=== PATIENT | female | born 1990 | race Caucasian/White ===

== ENCOUNTER → 2017-06-19 10:04 | Outpatient (CLI) | payer OTHER, SELFPAY ==
--- NOTE | 2017-06-19 10:30 | US_ITS ---
STUDY: SECOND AND THIRD TRIMESTER OBSTETRICAL ULTRASOUND REASON FOR EXAM: Female, 26 years old. Evaluate anatomy LMP: 01/26/2017 TECHNIQUE: Transabdominal PRIOR ULTRASOUND: None. FINDINGS: There is a single intrauterine fetus. Variable presentation There is demonstrated cardiac activity with a heart rate of 122 bpm. There is a normal amniotic fluid volume. The largest amniotic fluid pocket measures 6.7 cm. The placenta is posterior in location and is not low lying. There are Grade 0 placental changes. The cervix measures 4.1 cm in length. The bilateral adnexal regions are normal. BIOMETRY: BPD: 4.8 cm: 20 weeks, 3 days HC: 18.3 cm: 20 weeks, 5 days AC: 15 cm: 20 weeks, 2 days FL: 3.5 cm: 19 weeks, 4 days age by current US: 20 weeks, 5 days. ASHWINI by current US: 11/01/2017. Estimated weight: 362 grams, +/- 53 grams, 44 %. Age by LMP: 20 weeks, 4 days. ASHWINI by LMP: 11/02/2017. ANATOMY: Gender: Female Cranium: Normal lateral ventricles. Normal choroid plexus. Normal cerebellum. Normal cisterna magna. Normal face, nose and lips. Chest: Normal 4-chamber heart. Abdomen/Pelvis: Normal diaphragm. Normal stomach. Normal abdominal wall. Normal cord insertion. Normal 3 vessel cord. Normal kidneys. Normal bladder. Spine: Normal cervical spine. Normal thoracic spine. Normal lumbar spine. Normal sacrum. Extremities: Normal bilateral upper extremities. Normal bilateral lower extremities. US/OB Anatomy Scan IMPRESSION: Single live intrauterine at current gestational age of 20 weeks 5 days with estimated date of delivery 11/01/2017. anatomy is within normal limits. Electronically Signed: Michele Mckeon DO at 12:22 EST Tel , Service support ,
== END ==
PROVIDERS: Visit Provider Obstetrics & Gynecology
DX: Z34.92 Encounter for supervision of normal pregnancy, unspecified, second trimester (principal); Z3A.20 20 weeks gestation of pregnancy
CPT/HCPCS: 76805

== ENCOUNTER → 2017-08-08 13:07 | Outpatient (CLI) | payer OTHER, SELFPAY ==
[2017-08-08 15:55] LABS: Absolute Lymphocyte Count 2.06 X10^3/ul (0.83-4.51); Basophil# 0.01 X10^3/uL; Basophil% 0.1 % (0-1); Eosinophil# 0.09 X10^3/uL; Eosinophils% 0.8 % (0-5); Hematocrit 39.3 % (37-47); Lymphocyte # 2.06 X10^3/ul (4.0); Lymphocyte % 17.3 % (19-41); Mean Corp Hgb Conc 33.1 g/gl (32-36); Mean Corpuscular Hgb 31.8 pg (27.0-32.0); Mean Corpuscular Volume 96.1 fL (81-99); Mean Platelet Vol. 9.9 fl (6.2-12.0); Monocyte% 5.9 % (0-10); Neutrophil # 8.99 X10^3/uL (2.7-7.7); Neutrophil % 75.6 % (47-70); Platelet Count 166 K/mm3 (150-450); RBC Distribution Width CV 13.6 % (11.6-14.6); RBC Distribution Width SD 47.2 fl (35.1-43.9); Red Blood Count 4.09 M/mm3 (4.2-5.4); White Blood Count 11.9 K/mm3 (4.4-11.0)
[2017-08-08 15:57] LABS: POSITIVE COUNT NO; POSITIVE DIFFERENTIAL NO; POSITIVE MORPHOLOGY NO
[2017-08-08 16:09] LABS: Glucose Challenge Gest 1H 50g 136 mg/dL (70-140)
== END ==
PROVIDERS: Visit Provider Obstetrics & Gynecology
DX: O34.219 Maternal care for unspecified type scar from previous cesarean delivery (principal); Z3A.00 Weeks of gestation of pregnancy not specified
CPT/HCPCS: 82950; 85025

== ENCOUNTER → 2017-08-13 06:56 | Outpatient (CLI) | payer OTHER, SELFPAY ==
[2017-08-13 07:45] LABS: Glucose GTT-Gestation. Fasting 88 mg/dL (<105)
[2017-08-13 10:08] LABS: Glucose GTT-Gestational 1 Hr 161 mg/dL (<190)
[2017-08-13 10:12] LABS: Glucose GTT-Gestational 2 Hr 167 mg/dL (<165)
[2017-08-13 11:01] LABS: Glucose GTT-Gestational 3 Hr 141 L (<145)
== END ==
PROVIDERS: Nurse Practitioner Women's Health; Visit Provider Obstetrics & Gynecology
DX: O99.810 Abnormal glucose complicating pregnancy (principal); Z3A.00 Weeks of gestation of pregnancy not specified
CPT/HCPCS: 36415; 82951; 82952

== ENCOUNTER → 2017-09-04 15:47 | Outpatient (CLI) | payer OTHER, SELFPAY ==
[2017-09-04 16:29] LABS: ROM Internal Control Test YES-OK TO RESULT pt. (Internal QC); ROM Patient Test Negative (Negative)
== END ==
PROVIDERS: Visit Provider Nurse Practitioner Women's Health
DX: N89.8 Other specified noninflammatory disorders of vagina (principal)
CPT/HCPCS: 84112

== ENCOUNTER → 2017-09-27 13:23 | Outpatient (CLI) | payer OTHER, SELFPAY ==
--- NOTE | 2017-09-27 13:24 | US_ITS ---
STUDY: SECOND AND THIRD TRIMESTER OBSTETRICAL ULTRASOUND - LIMITED REASON FOR EXAM: Female, 26 years old. Routine survey. LMP: January 26, 2017. PRIOR ULTRASOUND: Comparison is made with prior examination dated June 19, 2017. TECHNIQUE: Transabdominal ultrasound evaluation was performed. FINDINGS: There is a single intrauterine fetus. The fetus is in a cephalic presentation. There is demonstrated cardiac activity with a heart rate of 127 bpm. There is a normal amniotic fluid volume. The largest amniotic fluid pocket measures 7.2 cm x 3.5 cm. The amniotic fluid index (ZUNILDA) is 10.3 cm. The placenta is fundal in location. There are Grade 1 placental changes. The cervix measures 3.3 cm in length. BIOMETRY: BPD: 8.27 cm: 33 weeks, 2 days HC: 30.13 cm: 33 weeks, 4 days AC: 31.26 cm: 35 weeks, 2 days FL: 7.17 cm: 36 weeks, 6 days Age by LMP: 34 weeks, 6 days. ASHWINI by LMP: November 02, 2017. age by prior US: 35 weeks, 0 days. ASHWINI by prior US: November 01, 2017. age by current US: 34 weeks, 6 days. ASHWINI by current US: November 02, 2017. Estimated weight: 2618 grams, +/- 382 grams, 57 percentile. Gender: Female US/OB Limited With Biometrics IMPRESSION: Single live intrauterine gestation with a mean gestational age of 35 weeks and 0 days. The measurements obtained today fall within the normal expected range. Electronically Signed: Gt Jalloh MD at 15:28 EDT Tel [phone], Service support ,
== END ==
PROVIDERS: Visit Provider Nurse Practitioner Women's Health
DX: O24.419 Gestational diabetes mellitus in pregnancy, unspecified control (principal); Z3A.00 Weeks of gestation of pregnancy not specified
CPT/HCPCS: 76816

== ENCOUNTER → 2017-10-10 17:23 | Outpatient (CLI) | payer OTHER, SELFPAY ==
[2017-10-10 18:26] LABS: Group B Strep DNA By PCR Negative (Negative); Internal Control PASS; Probe Check PASS; Specimen Processing Control PASS
== END ==
PROVIDERS: Visit Provider Nurse Practitioner Women's Health
DX: Z34.93 Encounter for supervision of normal pregnancy, unspecified, third trimester (principal); Z3A.36 36 weeks gestation of pregnancy
CPT/HCPCS: 87081; 87653

== ENCOUNTER 2017-10-30 13:55 | Inpatient (IN) | payer OTHER, SELFPAY ==
[2017-10-30] MEDS: Lactated Ringers 1,000 ML 50 ML IV ×3 (14:50→20:08)
[2017-10-30 15:00] VITALS: BMI 33.3
[2017-10-30 15:18] LABS: Hemoglobin 14.5 g/dl (12.0-15.0); Mean Platelet Vol. 10.8 fl (6.2-12.0); Platelet Count 178 K/mm3 (150-450); RBC Distribution Width CV 14.2 % (11.6-14.6); RBC Distribution Width SD 48.3 fl (35.1-43.9); Red Blood Count 4.68 M/mm3 (4.2-5.4); White Blood Count 12.2 K/mm3 (4.4-11.0)
[2017-10-30 15:19] LABS: Scan Indicated on CBC? Y/N NO
[2017-10-30 17:21] LABS: Bedside Glucose 70 mg/dL (70-110)
[2017-10-30 19:11] LABS: Bedside Glucose 66 mg/dL (70-110)
[2017-10-30 19:40] LABS: Bedside Glucose 81 mg/dL (70-110)
--- NOTE | 2017-10-30 21:33 | PCM.HP.OB ---
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 History Date of Admission: 10/30/17 Final ASHWINI: 11/02/17 Gestational age: 39 Weeks and 4 Days History of this : This is a 26 year-old, G2, P1, at 39 weeks gestational age. patient presented IAL 5 cm dilated. well controlled diabetes. desiring TOLAC, cosnent form signed Surgical History: Surgical History (Last Reviewed 10/18/17 @ 14:45 by Dalia Irizarry) History of delivery, currently (Acute) O34.219 consider TOLAC- 57% likelihood of success, patient counseled that ideally she should have 60% chance or more of success, patient given literature on TOLAC risks and benefits, patient wants to proceed with TOLAC. Allergies No Known Allergies Allergy (Verified 10/18/17 14:45) Home Medications: Home Medications vitamin,calcium,rjgmtkdc-ecvw-jtkls acid tablet 1 tab PO QDAY 04/30/17 acetone (urine) test strips See Dose Instructions .ROUTE .MEDSUPPLY #25 ea 08/13/17 blood sugar diagnostic strips See Dose Instructions .ROUTE .MEDSUPPLY #50 ea 08/13/17 blood-glucose meter kit See Dose Instructions .ROUTE .MEDSUPPLY #1 ea 08/13/17 Smoking Status: Never smoker Number of Fetus(es): 1 Heart Tracins moderate variability reactive no decels cat I TOCO Analysis: q 2-5 History Past Pregnancies: Past Pregnancies previous term csection Delivery Date Name GA/Weeks Outcome Route Weight Infant Gender Labor Length Anesthesia Delivery Location Provider FOB Labs: Mom[facility] Labs & Results 10/30/17 10/30/17 10/30/17 14:55 14:55 17:10 WBC 12.2 H RBC 4.68 Hgb 14.5 Hct 44.0 MCV 94.0 MCH 31.0 MCHC 33.0 RDW 14.2 RDW Differential 48.3 H Plt Count 178 MPV 10.8 POC Glucose 70 Blood Type A POSITIVE Antibody Screen NEGATIVE 10/30/17 10/30/17 18:17 19:22 WBC RBC Hgb Hct MCV MCH MCHC RDW RDW Differential Plt Count MPV POC Glucose 66 L 81 Blood Type Antibody Screen Course Did the patient receive Yes care? Labs Blood Type: A RH: POSITIVE RPR/VDRL/Syphilis Nonreactive Rubella status Immune HbSAg Negative Date Done: 05/22/17 Chlamydia Negative Gonorrhea Negative HIV/AIDS Non-Reactive Group B Strep: Negative Current Obstetrical History Gestational Diabetes Yes Incompetent Cervix No Infertility No IUGR No Macrosomia No Hypertension/Pre-eclampsia No Placenta Previa/Abruption No PTL/PROM No Uterine anomaly No Oligohydramnios No Polyhydramnios No Multiple gestation No Past Medical History Asthma No Diabetes No Hypertension No Heart disease No Mitral valve prolapse No Neurologic/Seizure disorder/ No Migraines Kidney disease No Liver disease No Varicosities No Clotting disorders/Hx of DVT No Thyroid Dysfunction No Other medical diseases No Psychiatric disorders No Major trauma No Abnormal PAP smear No Sleep apnea No Mammogram in the last 2 years No Social History Marital Status: Alleged father Maury Bond Hx Smoking No Smoking Status Never smoker Expected Infant Delivery Method: Review of Systems Constitutional: Denies: Fever, Malaise Eyes: Denies: Blurred vision, Vision Change HEENT: Denies: Head Aches, Visual Changes Cardiovascular: Denies: Chest Pain, Palpitations Respiratory: Denies: Cough, Shortness of Breath, Wheezing Gastrointestinal: Denies: Abdominal Pain, Diarrhea, Nausea, Vomiting Genitourinary: Denies: Dysuria, Hematuria Musculoskeletal: Denies: Joint Pain, Muscle pain Skin: Denies: Lesions, Rash Neurological: Denies: Blurred vision, Focal weakness, Headaches Psychiatric: Denies: Anxiety, Depression Endocrine: Denies: Heat/ Cold Intolerance Hematologic/ Lymphatic: Denies: Easy Bruising, Easy Bleeding Physical Exam General: Alert, Cooperative, No apparent distress HEENT: Atraumatic, Normocephalic. Negative for: Thyromegaly, Lymphadenopathy Cardiovascular: Regular rate Lungs: Normal air movement Abdomen: Soft, Non Tender, Gravid Neurological: Deep Tendon Reflexes 2+/4 and Symmetrical, Neuro grossly intact. Negative for: Clonus SAP MANAGER: Normal external genitalia. Negative for: Vulvar lesions Estimated gestational size: Appropriate for gestational size Presentation: Cephalic Assessment/Plan All Active Problems (Last Reviewed 10/18/17 @ 14:45 by Dalia Irizarry) Active labor at term (Acute) Supervision of high risk in third trimester (Acute) Gestational diabetes (Acute) History of delivery, currently (Acute) This is a 26 year-old, G2, P1, at 39 weeks gestational age. desired TOLAC and is IAL arom meconium fluid, reassuring tracing epidural placed gdma1- bs q 1 hour
--- NOTE | 2017-10-30 21:37 | HP.PCM_ITS ---
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 History Date of Admission: 10/30/17 Final ASHWINI: 11/02/17 Gestational age: 39 Weeks and 4 Days History of this : This is a 26 year-old, G2, P1, at 39 weeks gestational age. patient presented IAL 5 cm dilated. well controlled diabetes. desiring TOLAC, cosnent form signed Surgical History: Surgical History (Last Reviewed 10/18/17 @ 14:45 by Dalia Irizarry) History of delivery, currently (Acute) O34.219 consider TOLAC- 57% likelihood of success, patient counseled that ideally she should have 60% chance or more of success, patient given literature on TOLAC risks and benefits, patient wants to proceed with TOLAC. Allergies No Known Allergies Allergy (Verified 10/18/17 14:45) Home Medications: Home Medications vitamin,calcium,wwxunrms-gkwt-htwhq acid tablet 1 tab PO QDAY 04/30/17 acetone (urine) test strips See Dose Instructions .ROUTE .MEDSUPPLY #25 ea 08/13 blood sugar diagnostic strips See Dose Instructions .ROUTE .MEDSUPPLY #50 ea blood-glucose meter kit See Dose Instructions .ROUTE .MEDSUPPLY #1 ea 08/13/17 Smoking Status: Never smoker Number of Fetus(es): 1 Heart Tracins moderate variability reactive no decels cat I TOCO Analysis: q 2-5 History Past Pregnancies: Past Pregnancies previous term csection Delivery Date Name GA/Weeks Outcome Route Weight Gender Labor Length Anesthesia Delivery Location Provider FOB Labs: Mom[facility] Labs & Results 10/30/17 10/30/17 10/30/17 14:55 14:55 17:10 WBC 12.2 H RBC 4.68 Hgb 14.5 Hct 44.0 MCV 94.0 MCH 31.0 MCHC 33.0 RDW 14.2 RDW Differential 48.3 H Plt Count 178 MPV 10.8 POC Glucose 70 Blood Type A POSITIVE Antibody Screen NEGATIVE 10/30/17 10/30/17 18:17 19:22 WBC RBC Hgb Hct MCV MCH MCHC RDW RDW Differential Plt Count MPV POC Glucose 66 L 81 Blood Type Antibody Screen Course Did the patient receive Yes care? Labs Blood Type: A RH: POSITIVE RPR/VDRL/Syphilis Nonreactive Rubella status Immune HbSAg Negative Date Done: 05/22/17 Chlamydia Negative Gonorrhea Negative HIV/AIDS Non-Reactive Group B Strep: Negative Current Obstetrical History Gestational Diabetes Yes Incompetent Cervix No Infertility No IUGR No Macrosomia No Hypertension/Pre-eclampsia No Placenta Previa/Abruption No PTL/PROM No Uterine anomaly No Oligohydramnios No Polyhydramnios No Multiple gestation No Past Medical History Asthma No Diabetes No Hypertension No Heart disease No Mitral valve prolapse No Neurologic/Seizure disorder/ No Migraines Kidney disease No Liver disease No Varicosities No Clotting disorders/Hx of DVT No Thyroid Dysfunction No Other medical diseases No Psychiatric disorders No Major trauma No Abnormal PAP smear No Sleep apnea No Mammogram in the last 2 years No Social History Marital Status: Alleged father Maury Bond Hx Smoking No Smoking Status Never smoker Expected Infant Delivery Method: Review of Systems Constitutional: Denies: Fever, Malaise Eyes: Denies: Blurred vision, Vision Change HEENT: Denies: Head Aches, Visual Changes Cardiovascular: Denies: Chest Pain, Palpitations Respiratory: Denies: Cough, Shortness of Breath, Wheezing Gastrointestinal: Denies: Abdominal Pain, Diarrhea, Nausea, Vomiting Genitourinary: Denies: Dysuria, Hematuria Musculoskeletal: Denies: Joint Pain, Muscle pain Skin: Denies: Lesions, Rash Neurological: Denies: Blurred vision, Focal weakness, Headaches Psychiatric: Denies: Anxiety, Depression Endocrine: Denies: Heat/ Cold Intolerance Hematologic/ Lymphatic: Denies: Easy Bruising, Easy Bleeding Physical Exam General: Alert, Cooperative, No apparent distress HEENT: Atraumatic, Normocephalic. Negative for: Thyromegaly, Lymphadenopathy Cardiovascular: Regular rate Lungs: Normal air movement Abdomen: Soft, Non Tender, Gravid Neurological: Deep Tendon Reflexes 2+/4 and Symmetrical, Neuro grossly intact. Negative for: Clonus BUTTER LIQUEFIER: Normal external genitalia. Negative for: Vulvar lesions Estimated gestational size: Appropriate for gestational size Presentation: Cephalic Assessment/Plan All Active Problems (Last Reviewed 10/18/17 @ 14:45 by Dalia Irizarry) Active labor at term (Acute) Supervision of high risk in third trimester (Acute) Gestational diabetes (Acute) History of delivery, currently (Acute) This is a 26 year-old, G2, P1, at 39 weeks gestational age. desired TOLAC and is IAL arom meconium fluid, reassuring tracing epidural placed gdma1- bs q 1 hour
[2017-10-30] MEDS: Oxytocin 30 units/NS 500 ml 30 UNITS/500 ML IV.SOLN 334 UNITS IV (21:59)
[2017-10-30 22:05] LABS: Bedside Glucose 81 mg/dL (70-110)
[2017-10-30 22:05] LABS: Bedside Glucose 75 mg/dL (70-110)
--- NOTE | 2017-10-30 22:19 | PCM.OB.VAG ---
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 Vaginal Delivery Maternal Presentation: Active Labor 26-year-old at 39 weeks 4 days presents in active labor 5 cm dilation Amniotic Membrane Rupture Type: Artificial Amniotic Fluid Description: Moderate meconium Final ASHWINI: 11/02/17 Gestational age: 39 Weeks and 4 Days Date of Procedure: 10/30/17 Pre-Operative Diagnosis: In active labor, recurrent variable decelerations category 2 tracing Post-Operative Diagnosis: Same Surgery/ Procedure Performed: Vacuum Assisted Vaginal Delivery Type of Anesthesia: Epidural Description of Procedure: Patient began pushing and delivered the head in the TOM presentation. She developed recurrent severe variables down into the 60s with several contractions and moderate variability category 2 tracing, head was at the +3 station. The decision for a vacuum-assisted delivery was made and the Kiwi vacuum was applied and the +3 station and pulls were made with 2 contractions with 1 pop off the head was delivered atraumatically . The anterior and posterior shoulders delivered without complication followed by the rest of the infant and the was placed on the maternal abdomen. Cord was clamped and cut and gentle traction was applied to the cord and the placenta delivered spontaneously immediately following it was noted to be intact with three-vessel cord. The perineum and vagina were inspected and noted to have a second-degree laceration that was repaired in the usual fashion with 3-0 Vicryl repeat. EBL was 300 cc. Patient and tolerated delivery well. Presentation: TOM Placental Delivery Description: Spontaneous Placenta Disposition: [facility] Cord Vessel Description: 3 Vessels Cord Gases drawn per routine: ABG, VBG Cord Entanglement: None Estimated Blood Loss: 300 A gender: Female Episiotomy Description: None Laceration: Perineal Extension/lac, 2nd degree Medications given after delivery: IV Pitocin Complications: None
[2017-10-30] MEDS: Oxytocin 30 units/NS 500 ml 30 UNITS/500 ML IV.SOLN 167 UNITS IV (22:29)
[2017-10-30] MEDS: 0.9% Saline Lock 10 ML Syringe IV (23:44)
--- NOTE | 2017-10-31 00:43 | NURSING ---
epidural catheter removed- blue tip intact
[2017-10-31] MEDS: Naproxen 250 MG Tablet PO ×2 (02:21→17:31)
[2017-10-31 04:00] VITALS: BP 111/62; PULSE 74; RESP 16; TEMP 36.7; O2SAT 98
[2017-10-31 09:00] VITALS: BP 110/57; PULSE 72; RESP 16; TEMP 35.8; O2SAT 98
[2017-10-31 09:00] LABS: Bedside Glucose 77 mg/dL (70-110)
--- NOTE | 2017-10-31 10:45 | PCM.PN.OB ---
Patient Problems: Active and Suspected Problems (Last Reviewed 10/18/17 @ 14:45 by Dalia Irizarry) Active labor at term (Acute) Subjective: doing well no complaints - Physical Exam General: Alert, Oriented x3 Vital Signs Temp Pulse Resp BP Pulse Ox 96.4 F L 72 16 110/57 L 98 10/31/17 09:00 10/31/17 09:00 10/31/17 09:00 10/31/17 09:00 10/31/17 09:00 Oxygen Delivery Method Room Air Weight: 188 lb 4 oz Body Mass Index (BMI) 33.3 Intake and Output for Last 24 Hours 10/29/17 10/30/17 10/31/17 23:59 23:59 23:59 Intake Total 180 / 180 Output Total 100 / 100 1400 / 1400 Balance 80 / 80 -1400 / -1400 Laboratory Tests Past 24 Hrs 10/30/17 10/30/17 14:55 14:55 WBC 12.2 H RBC 4.68 Hgb 14.5 Hct 44.0 MCV 94.0 MCH 31.0 MCHC 33.0 RDW 14.2 RDW Differential 48.3 H Plt Count 178 MPV 10.8 Blood Type A POSITIVE Antibody Screen NEGATIVE POC Glucose 10/31/17 10/30/17 10/30/17 08:50 21:16 20:13 POC Glucose 77 81 75 10/30/17 10/30/17 10/30/17 19:22 18:17 17:10 POC Glucose 81 66 L 70 Medical Necessity - Tobacco Use Smoking Status: Never smoker Assessment/Plan All Active Problems (Last Reviewed 10/18/17 @ 14:45 by Dalia Irizarry) Active labor at term (Acute) Supervision of high risk in third trimester (Acute) Gestational diabetes (Acute) History of delivery, currently (Acute) s/p doing well routine care
[2017-10-31 12:50] VITALS: BP 106/48; PULSE 73; TEMP 37.2; O2SAT 96
[2017-10-31 15:00] VITALS: BP 105/57; PULSE 77; RESP 16; TEMP 37.2; O2SAT 96
[2017-10-31 19:48] VITALS: BP 105/47; PULSE 85; RESP 16; TEMP 37.1; O2SAT 96
[2017-11-01 02:00] VITALS: BP 114/75; PULSE 71; RESP 18; TEMP 36.3; O2SAT 98
[2017-11-01 07:39] VITALS: BP 101/42; PULSE 74; RESP 18; TEMP 36.6; O2SAT 97
--- NOTE | 2017-11-01 08:37 | PCM.PN.OB ---
Patient Problems: Active and Suspected Problems (Last Reviewed 10/18/17 @ 14:45 by Dalia Irizarry) Active labor at term (Acute) Subjective: NO SOB, CP, nausea. Doing well. - Physical Exam General: Alert, Oriented x3 Abdomen: Soft, Non Tender, - - FF below U Vital Signs Temp Pulse Resp BP Pulse Ox 97.9 F 74 18 101/42 L 97 11/01/17 07:39 11/01/17 07:39 11/01/17 07:39 11/01/17 07:39 11/01/17 07:39 Oxygen Delivery Method Room Air Weight: 188 lb 4 oz Body Mass Index (BMI) 33.3 Intake and Output for Last 24 Hours 10/30/17 10/31/17 11/01/17 23:59 23:59 23:59 Intake Total 180 / 180 Output Total 100 / 100 1400 / 1400 Balance 80 / 80 -1400 / -1400 POC Glucose 10/31/17 08:50 POC Glucose 77 Medical Necessity - Tobacco Use Smoking Status: Never smoker Assessment/Plan All Active Problems (Last Reviewed 10/18/17 @ 14:45 by Dalia Irizarry) Active labor at term (Acute) Supervision of high risk in third trimester (Acute) Gestational diabetes (Acute) History of delivery, currently (Acute) PPVAD #2 Routine care. OTC med for pain. . Home today.
--- NOTE | 2017-11-01 08:41 | PCM.DCVAG ---
Additional Instructions: If you experience any of the following, contact your healthcare provider. Bleeding that soaks a pad every hour for 2 hours Fever 100.4 or higher Unrelieved incision or abdominal pain Swelling, redness, discharge or bleeding from your incision or episiotomy site Your incision begins to separate Problems urinating (including inability to urinate or burning while urinating). Visual changes Severe headache Flu-like symptoms Pain or redness in one of both of your breasts Pain, warmth, tenderness or swelling in your legs, especially the calf area Frequent nausea and vomiting Symptoms of depression or anxiety If you experience any of the following, call 911 or go to the nearest Emergency Room. Chest pain Problems breathing Seizure activity Partial or complete paralysis of a body part, slurred speech, weakness or drooping of the face, or a sudden inability to walk or hold your balance Allergies/Adverse Reactions: Allergies No Known Allergies Allergy (Verified 10/18/17 14:45) Medications to take at Discharge vitamin,calcium,iqzclzfz-qgyq-nbgwd acid tablet 1 tab PO QDAY 04/30/17 acetone (urine) test strips See Dose Instructions .ROUTE .MEDSUPPLY #25 ea 08/13/17 blood sugar diagnostic strips See Dose Instructions .ROUTE .MEDSUPPLY #50 ea 08/13/17 blood-glucose meter kit See Dose Instructions .ROUTE .MEDSUPPLY #1 ea 08/13/17 Primary Care Physician: Care Physician,No Primary [Primary Care Provider] -
--- NOTE | 2017-11-01 08:42 | DCINST_ITS ---
Additional Instructions: If you experience any of the following, contact your healthcare provider. * Bleeding that soaks a pad every hour for 2 hours * Fever 100.4 or higher * Unrelieved incision or abdominal pain * Swelling, redness, discharge or bleeding from your incision or episiotomy site * Your incision begins to separate * Problems urinating (including inability to urinate or burning while urinating) . * Visual changes * Severe headache * Flu-like symptoms * Pain or redness in one of both of your breasts * Pain, warmth, tenderness or swelling in your legs, especially the calf area * Frequent nausea and vomiting * Symptoms of depression or anxiety If you experience any of the following, call 911 or go to the nearest Emergency Room. * Chest pain * Problems breathing * Seizure activity * Partial or complete paralysis of a body part, slurred speech, weakness or drooping of the face, or a sudden inability to walk or hold your balance Allergies/Adverse Reactions: Allergies No Known Allergies Allergy (Verified 10/18/17 14:45) Medications to take at Discharge vitamin,calcium,gehciauj-lior-atyse acid tablet 1 tab PO QDAY 04/30/17 acetone (urine) test strips See Dose Instructions .ROUTE .MEDSUPPLY #25 ea 08/13 blood sugar diagnostic strips See Dose Instructions .ROUTE .MEDSUPPLY #50 blood-glucose meter kit See Dose Instructions .ROUTE .MEDSUPPLY #1 08/13/17 Primary Care Physician: Care Physician,No Primary [Primary Care Provider] -
[2017-11-01 12:53] VITALS: BP 115/65; PULSE 79; RESP 18; TEMP 37.5; O2SAT 97
== END 2017-11-01 13:10 | disposition home or self-care (01) | DRG 775 ==
PROVIDERS: Admitting Provider Obstetrics & Gynecology; Visit Provider Obstetrics & Gynecology
DX: O76 Abnormality in fetal heart rate and rhythm complicating labor and delivery (principal); O24.429 Gestational diabetes mellitus in childbirth, unspecified control; O77.0 Labor and delivery complicated by meconium in amniotic fluid; O70.1 Second degree perineal laceration during delivery; Z98.891 History of uterine scar from previous surgery; Z3A.39 39 weeks gestation of pregnancy; Z37.0 Single live birth
CPT/HCPCS: 59025; 59050; 82962; 85027; 86850; 86900; 99218; J7120; A4216; G0378

== ENCOUNTER → 2017-12-12 19:18 | Outpatient (CLI) | payer OTHER, SELFPAY ==
[2017-12-19 08:18] LABS: HPV Reflexed? NOT INDICATED
== END ==
PROVIDERS: Visit Provider Obstetrics & Gynecology
DX: Z12.4 Encounter for screening for malignant neoplasm of cervix (principal)
CPT/HCPCS: 88175; G0145

== ENCOUNTER → 2018-11-13 13:46 | Outpatient (CLI) | payer OTHER, SELFPAY ==
[2018-11-13 12:20] VITALS: BMI 29.0
== END ==
PROVIDERS: Referring Provider Obstetrics & Gynecology; Visit Provider Obstetrics & Gynecology
DX: R39.15 Urgency of urination (principal)
CPT/HCPCS: 87086; 87088

== ENCOUNTER → 2019-11-27 10:28 | Outpatient (CLI) | payer OTHER, SELFPAY ==
[2019-11-27 10:15] VITALS: BMI 29.0
[2019-11-27 11:04] LABS: Hemoglobin A1c 5.1 % (3.8-5.6)
[2019-12-05 05:45] LABS: HPV APTIMA, High Risk Negative (Negative)
== END ==
PROVIDERS: PCP Internal Medicine; Referring Provider Nurse Practitioner Women's Health; Visit Provider Nurse Practitioner Women's Health
DX: Z12.4 Encounter for screening for malignant neoplasm of cervix (principal); Z86.32 Personal history of gestational diabetes
CPT/HCPCS: 36415; 83036; 87624; 88175; G0145

== ENCOUNTER → 2020-01-05 | Outpatient (CLI) | payer OTHER, SELFPAY ==
[2020-01-05 14:22] VITALS: BMI 29.0
[2020-01-05 18:31] LABS: Amphetamine Urine VISTA NEGATIVE (<1000 ng/mL); Barbiturate Urine VISTA NEGATIVE (< 200 ng/mL); Benzodiazepine Urine VISTA NEGATIVE (< 200 ng/mL); Cocaine Urine VISTA NEGATIVE (< 300 ng/mL); Ecstacy Urine VISTA NEGATIVE (< 500 ng/mL); Methadone Urine VISTA NEGATIVE (< 300 ng/mL); PCP Urine VISTA NEGATIVE (< 25 ng/mL); THC Urine VISTA NEGATIVE (< 50 ng/mL); Vista UDS pH Range 6
[2020-01-08 03:06] LABS: Chlamydia By Nucleic Acid AMP Negative (Negative)
[2020-01-08 11:31] LABS: Gonococcus By Nucleic Acid AMP Negative (Negative)
== END | disposition home or self-care (01) ==
PROVIDERS: PCP Internal Medicine; Referring Provider Obstetrics & Gynecology; Visit Provider Obstetrics & Gynecology
DX: Z34.90 Encounter for supervision of normal pregnancy, unspecified, unspecified trimester (principal)
CPT/HCPCS: 80307; 87086; 87088; 87491; 87591

== ENCOUNTER → 2020-02-02 11:33 | Outpatient (CLI) | payer OTHER, SELFPAY ==
[2020-02-02 10:56] VITALS: BMI 29.0
[2020-02-02 11:53] LABS: Absolute Lymphocyte Count 1.93 X10^3/uL (0.83-4.51); Absolute Neutrophil Count 5.7 X10^3/uL (2.0-7.7); Basophil# 0.01 X10^3/uL; Basophil% 0.1 % (0-1); Eosinophil# 0.04 X10^3/uL; Eosinophils% 0.5 % (0-5); Hematocrit 39.9 % (37-47); Hemoglobin 13.4 g/dL (12.0-15.0); Lymphocyte # 1.93 X10^3/ul (4.0); Lymphocyte % 23.1 % (19-41); Mean Corp Hgb Conc 33.6 g/dL (32-36); Mean Corpuscular Hgb 31.5 pg (27.0-32.0); Mean Corpuscular Volume 93.9 fL (81-99); Mean Platelet Vol. 9.5 fl (6.2-12.0); Monocyte# 0.54 X10^3/uL; Monocyte% 6.5 % (0-10); NRBC Flagged by Analyzer 0 % (0-5); Neutrophil # 5.72 X10^3/uL (2.7-7.7); Neutrophil % 68.5 % (47-70); Platelet Count 223 K/mm3 (150-450); RBC Distribution Width CV 12.7 % (11.6-14.6); RBC Distribution Width SD 43.6 fl (35.1-43.9); Red Blood Count 4.25 M/mm3 (4.2-5.4); White Blood Count 8.4 K/mm3 (4.4-11.0)
[2020-02-02 13:14] LABS: HIV - WCH Non-Reactive (Nonreactive); Hepatitis B Surface Antigen Non-Reactive (Nonreactive); Hepatitis C Antibody Non-Reactive (Nonreactive); Rubella IgG 217.8 IU/mL
[2020-02-05 04:30] LABS: Rapid Plasmin Reagin (RPR) NONREACTIVE (NONREACTIVE)
== END ==
PROVIDERS: PCP Internal Medicine; Referring Provider Obstetrics & Gynecology; Visit Provider Obstetrics & Gynecology
DX: Z34.90 Encounter for supervision of normal pregnancy, unspecified, unspecified trimester (principal)
CPT/HCPCS: 36415; 85025; 86592; 86703; 86762; 86803; 86850; 86900; 86901; 87340

== ENCOUNTER → 2020-03-15 13:29 | Outpatient (CLI) | payer OTHER, SELFPAY ==
[2020-02-02 10:56] VITALS: BMI 29.0
[2020-03-02 10:14] VITALS: BMI 32.2
--- NOTE | 2020-03-15 13:29 | US_ITS ---
STUDY: SECOND AND THIRD TRIMESTER OBSTETRICAL ULTRASOUND REASON FOR EXAM: Female, 29 years old ANATOMY LMP: 11/02/2019. TECHNIQUE: Transabdominal and Transvaginal TECHNICAL QUALITY: Adequate. PRIOR ULTRASOUND: None. FINDINGS: There is a single intrauterine fetus. The fetus is in a cephalic presentation. There is demonstrated cardiac activity with a heart rate of 158 bpm. There is a normal amniotic fluid volume. The largest amniotic fluid pocket measures 4.7 cm x 3.2 cm. The amniotic fluid index (ZUNILDA) is within normal limits. The placenta is posterior and low lying but not previa in location. The tip of the placenta is 9 mm from the cervical os. There are Grade 0 placental changes. The cervix measures 3.2 cm in length. The bilateral adnexal regions are normal. BIOMETRY: BPD: 4.2 cm: 18 weeks, 5 days HC: 16.1 cm: 18 weeks, 6 days AC: 14.1 cm: 19 weeks, 3 days FL: 2.9 cm: 18 weeks, 5 days CI: 73% FL/BPD: 68% FL/HC: FL/AC: 20% HC/AC: 1.14 age by current US: 18 weeks, 6 days. ASHWINI by current US: 08/10/2020. Estimated weight: 276 grams, +/- 41 grams, 44 %. Age by LMP: 19 weeks, 0 days. ASHWINI by LMP: 08/09/2020. ANATOMY: Gender: Female Cranium: Normal lateral ventricles. Normal choroid plexus. Normal cerebellum. Normal cisterna magna. Normal face, nose and lips. Chest: Normal 4-chamber heart. Abdomen/Pelvis: Normal diaphragm. Normal stomach. Normal abdominal wall. Normal cord insertion. Normal 3 vessel cord. Normal kidneys. Normal bladder. Spine: Normal cervical spine. Normal thoracic spine. Normal lumbar spine. Normal sacrum. Extremities: Normal bilateral upper extremities. Normal bilateral lower extremities. US/OB Anatomy Scan IMPRESSION: Single live intrauterine gestation with mean gestational age of 18 weeks and 6 days. Electronically Signed: Gt Jalloh, at 15:53 EDT , Service support ,
== END ==
PROVIDERS: PCP Internal Medicine; Referring Provider Obstetrics & Gynecology; Visit Provider Obstetrics & Gynecology
DX: Z36.9 Encounter for antenatal screening, unspecified (principal)
CPT/HCPCS: 76805; 76817

== ENCOUNTER → 2020-05-24 09:08 | Outpatient (CLI) | payer OTHER, SELFPAY ==
[2020-04-02 16:05] VITALS: BMI 32.8
[2020-04-30 15:40] VITALS: BMI 33.6
--- NOTE | 2020-05-24 09:11 | US_ITS ---
STUDY: SECOND AND THIRD TRIMESTER OBSTETRICAL ULTRASOUND - LIMITED REASON FOR EXAM: Female, 29 years old PLACENTA LOCATION LMP: 11/02/2019. PRIOR ULTRASOUND: Comparison is made with prior examination 03/15/2020. TECHNIQUE: Transabdominal and Transvaginal TECHNICAL QUALITY: Adequate. FINDINGS: There is a single intrauterine fetus. The fetus is in a cephalic presentation. There is demonstrated cardiac activity with a heart rate of 160 bpm. There is a normal amniotic fluid volume. The largest amniotic fluid pocket measures 5.6 cm. The amniotic fluid index (ZUNILDA) is 12.6 cm. The placenta is posterior in location and is borderline low lying. The tip of the placenta lies at 2.1 cm from the cervix. There are Grade 1 placental changes. The cervix measures 3.3 cm in length. BIOMETRY: Age by LMP: 29 weeks, 0 days. ASHWINI by LMP: 08/09/2020. age by prior US: 28 weeks, 6 days. ASHWINI by prior US: 08/10/2020. US/OB Limited (No Biometrics) IMPRESSION: Posterior placenta. The distal tip of the placenta lies at 2.1 cm from the cervix. Electronically Signed: Gt Jalloh, at 12:43 EST , Service support ,
== END ==
PROVIDERS: PCP Internal Medicine; Referring Provider Obstetrics & Gynecology; Visit Provider Obstetrics & Gynecology
DX: Z34.93 Encounter for supervision of normal pregnancy, unspecified, third trimester (principal); Z3A.29 29 weeks gestation of pregnancy
CPT/HCPCS: 76815; 76817

== ENCOUNTER → 2020-06-24 13:03 | Outpatient (CLI) | payer OTHER, SELFPAY ==
[2020-04-30 15:40] VITALS: BMI 33.6
[2020-06-04 09:13] VITALS: BMI 34.5
--- NOTE | 2020-06-24 13:05 | US_ITS ---
STUDY: SECOND AND THIRD TRIMESTER OBSTETRICAL ULTRASOUND - LIMITED REASON FOR EXAM: Female, 29 years old PLACENTAL LOCATION LMP: 11/02/2019. PRIOR ULTRASOUND: Comparison is made with prior examination dated 05/24/2020. TECHNIQUE: Transabdominal and Transvaginal TECHNICAL QUALITY: Adequate. FINDINGS: There is a single intrauterine fetus. The fetus is in a cephalic presentation. There is demonstrated cardiac activity with a heart rate of 135 bpm. There is a normal amniotic fluid volume. The largest amniotic fluid pocket measures 5.5 cm. The amniotic fluid index (ZUNILDA) is 13.7 cm. The placenta is posterior and low lying but not previa in location. The tip of the placenta is between 1.5 cm and 1.7 cm from the os. There are Grade 1 placental changes. The cervix measures 3.2 cm in length. BIOMETRY: BPD: 8.2 cm: 33 weeks, 2 days HC: 29.7 cm: 32 weeks, 6 days AC: 29.4 cm: 33 weeks, 2 days FL: 6.4 cm: 33 weeks, 1 days Age by LMP: 33 weeks, 3 days. ASHWINI by LMP: 08/09/2020. age by prior US: 33 weeks, 4 days. ASHWINI by prior US: 08/10/2020. age by current US: 32 weeks, 6 days. ASHWINI by current US: 08/13/2020. Estimated weight: 2183 grams, +/- 327 grams, 41 percentile. The umbilical cord lies along the posterior neck of the fetus. US/OB Limited With Biometrics IMPRESSION: Single live intrauterine gestation with a mean gestational age of 33 weeks and 4 days. The measurements obtained today fall within normal expected range. There is a low-lying posterior placenta. The tip of the placenta is between 1.5 cm and 1.7 cm from the cervical os. Electronically Signed: Gt Jalloh MD at 14:53 EST , Service support ,
== END ==
PROVIDERS: PCP Internal Medicine; Referring Provider Nurse Practitioner Women's Health; Visit Provider Nurse Practitioner Women's Health
DX: O44.43 Low lying placenta NOS or without hemorrhage, third trimester (principal); Z3A.33 33 weeks gestation of pregnancy
CPT/HCPCS: 76816; 76817

== ENCOUNTER → 2020-07-13 | Outpatient (CLI) | payer OTHER, SELFPAY ==
[2020-07-13 10:33] VITALS: BMI 35.0
== END | disposition home or self-care (01) ==
PROVIDERS: Referring Provider Obstetrics & Gynecology; Visit Provider Obstetrics & Gynecology
DX: Z34.90 Encounter for supervision of normal pregnancy, unspecified, unspecified trimester (principal)
CPT/HCPCS: 87081

== ENCOUNTER → 2020-07-20 12:52 | Outpatient (CLI) | payer OTHER, SELFPAY ==
[2020-06-24 13:53] VITALS: BMI 35.1
[2020-07-13 10:33] VITALS: BMI 35.0
--- NOTE | 2020-07-20 12:54 | US_ITS ---
STUDY: SECOND AND THIRD TRIMESTER OBSTETRICAL ULTRASOUND - LIMITED REASON FOR EXAM: Female, 29 years old placenta placement LMP: 11/03/2019. PRIOR ULTRASOUND: Comparison is made with prior study dated 06/24/2020. TECHNIQUE: Transabdominal and Transvaginal TECHNICAL QUALITY: Adequate. FINDINGS: There is a single intrauterine fetus. The fetus is in a cephalic presentation. There is demonstrated cardiac activity with a heart rate of 157 bpm. There is a normal amniotic fluid volume. The largest amniotic fluid pocket measures 4.1 cm x 3.4 cm. The amniotic fluid index (ZUNILDA) is 10.55 cm. The placenta is posterior and low lying but not previa in location. The tip of the placenta is between 1.6 and 2.1 cm from the cervical os. There are Grade 1 placental changes. The cervix measures 3.6 cm in length. The umbilical cord is seen posterior to the neck. BIOMETRY: BPD: 9 cm: 36 weeks, 3 days HC: 32.41 cm: 36 weeks, 4 days AC: 32.75 cm: 36 weeks, 4 days FL: 7.28 cm: 37 weeks, 1 days Age by LMP: 37 weeks, 1 days. ASHWINI by LMP: 08/09/2020. age by prior US: 36 weeks, 4 days. ASHWINI by prior US: 08/13/2020. age by current US: 36 weeks, 3 days. ASHWINI by current US: 08/14/2020. Estimated weight: 3067 grams, +/- 46 grams, 50.9 percentile. IMPRESSION: Single live intrauterine gestation with a mean gestational age of 36 weeks and 4 days. The measurements obtained today fall within the normal expected range. Low-lying placenta. Electronically Signed: Gt Jalloh MD at 14:39 EST , Service support , STUDY: FIRST TRIMESTER OBSTETRICAL ULTRASOUND REASON FOR EXAM: Female, 29 years old placenta placement LMP: 11/03/2019 TECHNIQUE: Transvaginal TECHNICAL QUALITY: Adequate. PRIOR ULTRASOUND: None. FINDINGS: Posterior low-lying placenta. The tip of the placenta measures 1.6 to 2.1 cm from the cervical os. US/OB Limited With Biometrics IMPRESSION: Low-lying placenta previa. Electronically Signed: Gt Jalloh MD at 14:38 EST , Service support ,
== END ==
PROVIDERS: PCP Internal Medicine; Referring Provider Nurse Practitioner Women's Health; Visit Provider Nurse Practitioner Women's Health
DX: O44.43 Low lying placenta NOS or without hemorrhage, third trimester (principal); Z3A.36 36 weeks gestation of pregnancy
CPT/HCPCS: 76816; 76817

== ENCOUNTER 2020-08-02 11:40 | Inpatient (IN) | payer OTHER, SELFPAY ==
[2020-08-02] VITALS (28 sets, daily range): BP systolic 102–142; BP diastolic 51–76; PULSE 70–109; RESP 16; TEMP 36.4–36.9; O2SAT 97–100; BMI 35.2; BMI 34.4
--- NOTE | 2020-08-02 12:01 | HP.PCM_ITS ---
- Problem List (1) Active labor at term Status: Acute (2) 37 weeks gestation of Status: Acute Comment: electronic covid test ordered 07/23/20 (scheduled for 08/06/20 at 1340) (3) History of delivery Status: Acute Comment: x 1, plan this . (4) History of gestational diabetes Status: Acute Comment: declines 1 hr GCT, nl 1 week of home testing (5) Low-lying placenta Status: Acute Comment: almost 2 cm posterior away from cervix, will proceed with trial of labor (6) Other general counseling and advice for contraceptive management Status: Acute Comment: Wants BS if c section (7) Status: Acute Qualifiers: Comment: NIPT, carrier, and ntd declined. nl anatomy. patient declined GCT, planning home testing. (8) Supervision of normal Status: Acute Qualifiers: Comment: PRR ASHWINI 08/09/20 girl Germaine Seals Maury History and Physical Date of Admission: 08/02/20 Intake Vital Signs 08/02/20 Height 5 ft 3 in 08/02/20 Weight: 199 lb 08/02/20 BMI 35.2 Intake Visit Reasons: ?loF Chief Complaint: est ob loF? [employer] Required: No Is patient in pain?: No Allergies No Known Allergies Allergy (Verified 08/02/20 11:18) Medications vitamin#30 30 mg iron-10 mg iron-folic acid 1 mg-omg3 capsule cap PO 01/05/20 [History Confirmed 08/02/20] Last Menstral Period: 01/21/17 Zika: Zika virus screening: Negative : No PFSH PFSH Social History (Updated 08/02/20 @ 11:[address] 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 Date Name GA/Weeks Outcome Route Bth Weight Infant Gen Labor Lgth Anesthesia Del Locatn Provider FOB 12/05/13 Darby 39 live - full term 7 lb s 13 oz Female spinal [place] Dr. Roya Mendiola 10/30/17 Germaine 39 live - full term 7 lbs Female 8 hours epidural [facility] SACHI Maury Delivery Date: 12/05/13 No notes to display Delivery Date: 10/30/17 Variable Decels Minerva,Neda HPI ?loF: Details: DANY SALEH is a 29 year old who presents for routine OB visit. OB Visit ASHWINI Calculator Estimated Delivery Date Method Current WG Current Estimate 08/09/20 LMP (Certain) 39w 0d Other Estimates 08/09/20 Ultrasound #1 39w 0d Expected Delivery Route/Plan , preivous x 1 by 41 Labor Preferences- CB/BF classes: no labor support person: Maury labor intervention preferences: no pain management options preferred: epidural if needed cut cord/dad catch: no : yes PP control planned: BS if CS discussed possible routes of delivery and associated risks: [] special requests: [] Specific Issue/Plans flu vaccine: declines tdap vaccine: declines rhogam: na LARC form signed: yes movement and labor precautions reviewed. Problem list reviewed and updated with the most current plan of care details and appropriate orders placed. Relevant counseling for the gestational age provided. Continue routine care and follow up unless otherwise noted in visit notes/problem list details Initial Weight: 180 lb Date EGA Weight BP Urine Prot Glucose FHR FuHt Pres Dilation Effaced St Visit Note 01/05/20 9w 0d 182 lb (+2 lb) 110/72 165 SM- CRL - SM- CRL - 2cm cons with LMP 02/02/20 13w 0d 182 lb (+2 lb) 102/84 Negative Negative 150 SM- no vb cramping 03/02/20 17w 1d 182 lb (+2 lb) 110/72 Negative Negative 146 MH-No VB, LOF. Checking home glucose and WNL. 04/02/20 21w 4d 185 lb 6 oz (+5 lb 6 oz) 122/64 Negative Negative 145 SM- no vb cramping reviewed US 04/30/20 25w 4d 190 lb (+10 lb) 120/74 Negative Negative 145 25 SM- no vb lof good fm no regular ctx 06/04/20 30w 4d 195 lb (+15 lb) 110/74 Negative Negative 140 31 SM- no vb lof good fm no regular ctx 06/24/20 33w 3d 198 lb 2 oz (+18 lb 2 oz) 120/80 Negative Negative 148 33 MH-No vB, LOF, Good FM. US done earlier today. Larc 07/13/20 36w 1d 198 lb (+18 lb) 118/74 Negative Negative 140 36 Cephalic 1 SM- no vb lof good fm nor egular ctx 07/20/20 37w 1d 193 lb 6 oz (+13 lb 6 oz) 124/68 Negative Negative 145 37 Cephalic SM- no vb lof good fm no reuglar ctx had repeat us today 07/29/20 38w 3d 198 lb (+18 lb) 102/70 Negative Negative 145 38 Cephalic 3 40 -2 SM- no vb lof good fm no regular ctx SM- no vb lof good fm no regular ctx cervix still thick and posterior but more dilated. discussed risks of placental location, but reasonable for trial of labor. 08/02/20 39w 0d 199 lb (+19 lb) Cephalic 5 70 -1 GP - Presents for LOF. On exam, evidence of clear fluid in the vault. Cx 5cm with no palpable bag of water. Sent to labor and delivery for active labor. ACOG First Trimester First Trimester: Desire for , Alcohol, Tobacco Cessation, Illicit/Recreational Drug/Substance Use, Intimate Partner Violence, Barriers to care, Unstable Housing, Communication Barriers, Environmental/Work Hazards, Ant icipated Course of Care, Toxoplasmosis Precations, Use of Any medications, Sexual activity, Exercise, Dental Care, Sauna/Hot tub use, Seat Belt use, Childbirth classes/Hospital facilities, , Travel, Indications for US and Screening for Aneuploidy Second Trimester Second Trimester: Signs and Symptoms of Labor, Selecting a care provider, Reproductive Life Planning, Care Planning, Depression/Anxiety and Intimate Partner Violence; discussed Tobacco Cessation Third Trimester Third Trimester: Pain Management Plans, Trial of Labor after Counseling, Labor support person(s), Immediate Larc, Movement Monitoring, Signs and Symptoms of Preeclampsia and Labor Signs; discussed Depression Diagnostics Diagnostics Diagnostics Blood Type A POSITIVE 02/02/20 Antibody Screen NEGATIVE 02/02/20 HIV 1&2 Antibody Non-Reactive (Nonreactive) 02/02/20 Rubella IgG Antibody 217.8 IU/mL 02/02/20 Hgb 13.4 g/dL (12.0-15.0) 02/02/20 Hct 39.9 % (37-47) 02/02/20 RPR NONREACTIVE (NONREACTIVE) 02/02/20 Details: HIV: Urine Culture: Sequential Screen: NIPT Screen: ROS Const Reports system reviewed and no additional complaints, except as docu Eyes Reports system reviewed and no additional complaints, except as docu ENT Reports system reviewed and no additional complaints, except as docu Card Reports system reviewed and no additional complaints, except as docu Resp Reports system reviewed and no additional complaints, except as docu GI Reports system reviewed and no additional complaints, except as docu Reports system reviewed and no additional complaints, except as docu, Denies abnormal vaginal bleeding, Denies painful urination, Denies pelvic pain, Denies vaginal discharge, Denies vaginal odor, Denies vaginal itching Musc Reports system reviewed and no additional complaints, except as docu Skin/Breast Reports system reviewed and no additional complaints, except as docu Neuro Yes system reviewed and no additional complaints, except as docu Psych Reports system reviewed and no additional complaints, except as docu Endo Reports system reviewed and no additional complaints, except as docu Exam Const General: cooperative, healthy appearing, comfortable, no acute distress, well developed, well groomed Nutritional Appearance: average body habitus, well nourished Orientation: alert, awake, oriented x3 HENMT Head: normal to inspection, normocephalic, atraumatic Eyes Pupils: PERRL, accommodation normal Resp Effort & Inspection: normal respiratory effort, able to speak in complete sentences, symmetric chest movement Cardio Rate: regular rate GI Palpation: soft, no guarding, no masses, nontender Skin General: no rashes or lesions noted, elasticity normal, turgor normal Neuro General: alert, awake, oriented x3 Cranial Nerves: CN's II-XI intact bilaterally, sense of smell intact, PERRL, accommodation normal, EOM intact bilaterally Speech: speech normal Gait: normal gait Psych Appearance: grossly normal, well kempt Mental Status: mental status grossly normal Mood: congruent mood Affect: normal affect Speech and Movement: speech and movement normal Attitude: cooperative Thought Process: normal Thought Content: normal Judgment: judgment good Assessment & Plan Problems 1. 37 weeks gestation of Z3A.37 electronic covid test ordered 07/23/20 (scheduled for 08/06/20 at 1340) 2. Other general counseling and advice for contraceptive management Z30.09 Wants BS if c section 3. Low-lying placenta O44.40 almost 2 cm posterior away from cervix, will proceed with trial of labor 4. History of delivery Z98.891 x 1, plan this . 5. 39 weeks gestation of Z3A.39 NIPT, carrier, and ntd declined. nl anatomy. patient declined GCT, planning home testing. 6. Encounter for supervision of other normal in third trimester Z34.83 PRR ASHWINI 08/09/20 girl Germaine Seals Maury 7. History of gestational diabetes Z86.32 declines 1 hr GCT, nl 1 week of home testing Plan Patient presents IAL, plan expectant management for , pitocin if needed. Pain management: plan natural. GBS negative. Management of any complications: none I have reviewed the [facility] and made any clinically relevant updates. UPDATE- I have seen the patient and performed any clinically relevant updates to the history and physical exam. Tiff Olguin MD
[2020-08-02] MEDS: Lactated Ringers 1,000 ML 200 ML IV (12:10)
[2020-08-02 12:21] LABS: Absolute Lymphocyte Count 2.63 X10^3/uL (0.83-4.51); Absolute Neutrophil Count 9.1 X10^3/uL (2.0-7.7); Basophil# 0.03 X10^3/uL; Basophil% 0.2 % (0-1); Eosinophil# 0.03 X10^3/uL; Eosinophils% 0.2 % (0-5); Hematocrit 41.9 % (37-47); Hemoglobin 13.8 g/dL (12.0-15.0); Lymphocyte # 2.63 X10^3/ul (4.0); Lymphocyte % 20.4 % (19-41); Mean Corp Hgb Conc 32.9 g/dL (32-36); Mean Corpuscular Hgb 31.9 pg (27.0-32.0); Mean Platelet Vol. 11.4 fl (6.2-12.0); Monocyte# 1.02 X10^3/uL; Monocyte% 7.9 % (0-10); NRBC Flagged by Analyzer 0 % (0-5); Neutrophil # 9.14 X10^3/uL (2.7-7.7); Neutrophil % 70.8 % (47-70); Platelet Count 177 K/mm3 (150-450); RBC Distribution Width CV 13.6 % (11.6-14.6); Red Blood Count 4.32 M/mm3 (4.2-5.4); White Blood Count 12.9 K/mm3 (4.4-11.0)
[2020-08-02] MEDS: Lactated Ringers 500 ML 999 ML IV (13:56)
[2020-08-02] MEDS: fentaNYL-bupivacaine (epidural) 100 ML BAG EPIDURAL (14:15)
[2020-08-02] MEDS: Oxytocin 30 units/NS 500 ml 30 UNITS/500 ML IV.SOLN 334 UNITS IV (16:00)
--- NOTE | 2020-08-02 17:08 | OP.PCM_ITS ---
Problem List (1) Vaginal after () Status: Acute Vaginal Delivery Maternal Presentation: Active Labor ial srom clear fluid 39 weeks Method of Induction: Cytotec Amniotic Membrane Rupture Type: Spontaneous Amniotic Fluid Description: Clear Final ASHWINI: 08/09/20 Gestational age: 39 Weeks and 0 Days Date of Procedure: 08/02/20 Pre-Operative Diagnosis: ial tolac Post-Operative Diagnosis: Surgery/ Procedure Performed: - - Type of Anesthesia: Epidural Description of Procedure: Patient began pushing and delivered the head in the KIMI presentation. The head was delivered atraumatically a loose nuchal cord x1 was identified and the infant delivered through. The anterior and posterior shoulders delivered without complication followed by the rest of the and the was placed on the maternal abdomen. Delayed cord clamping was employed for approximately 60 seconds. Cord was clamped and cut and gentle traction was applied to the cord and the placenta delivered spontaneously immediately following it was noted to be intact with three-vessel cord. The perineum and vagina were inspected and noted to have no laceration. EBL was 100 cc. Patient and tolerated delivery well. Presentation: KIMI Placental Delivery Description: Spontaneous Placenta Disposition: [facility] Cord Entanglement: Around neck x 1, loose Estimated Blood Loss: 100 A gender: Female Episiotomy Description: None Laceration: None Medications given after delivery: IV Pitocin Complications: None Multi Select Codes - Urinary/Genital Urinary/Genital CPT Codes: 41967 delivery [facility]
--- NOTE | 2020-08-02 17:10 | DCINST_ITS ---
<Stephanie Garcia - Last Filed: 08/02/20 17:10> Discharge Diet: No Restrictions Discharge Activity: Return to Normal Activity, May not drive while taking narcotic pain medications., May Shower May resume sexual activity in: 4-6 weeks Call your doctor if your incision/area has: Continuous Slow Oozing, Sudden Increased Bleeding, Increased Pain/ Swelling, Increased Redness, Foul Smelling Discharge Additional Instructions: If you experience any of the following, contact your healthcare provider. * Bleeding that soaks a pad every hour for 2 hours * Fever 100.4 or higher * Unrelieved incision or abdominal pain * Swelling, redness, discharge or bleeding from your incision or episiotomy site * Your incision begins to separate * Problems urinating (including inability to urinate or burning while urinating). * Visual changes * Severe headache * Flu-like symptoms * Pain or redness in one of both of your breasts * Pain, warmth, tenderness or swelling in your legs, especially the calf area * Frequent nausea and vomiting * Symptoms of depression or anxiety If you experience any of the following, call 911 or go to the nearest Emergency Room. * Chest pain * Problems breathing * Seizure activity * Partial or complete paralysis of a body part, slurred speech, weakness or drooping of the face, or a sudden inability to walk or hold your balance Allergies/Adverse Reactions: Allergies No Known Allergies Allergy (Verified 08/02/20 11:57) Medications to take at Discharge vitamin#30 30 mg iron-10 mg iron-folic acid 1 mg-omg3 capsule cap PO 01/05/20 Naproxen [Naprosyn] 250 - 500 mg PO Q8H PRN PRN #30 tab 08/02/20 The following prescriptions were given: Naproxen [Naprosyn] 250 - 500 mg PO Q8H PRN PRN #30 tab PRN Reason: MILD PAIN Transmission Status: Received by [facility] Please Follow Up With: Stephanie Garcia MD - [phone] When: Call to make an appointment with your doctor in 6 weeks. If you had elevated Blood pressure or 4th degree laceration you will need to be seen in 2 weeks. Primary Care Physician: Care Physician,No Primary [Primary Care Provider] - Test Results: Test results from this visit will be discussed in further detail at your follow- up appointment, if applicable. <Delmis Kang BEEF SELECTOR - Last Filed: 08/03/20 07:43> Additional Instructions: If you experience any of the following, contact your healthcare provider. * Bleeding that soaks a pad every hour for 2 hours * Fever 100.4 or higher * Unrelieved incision or abdominal pain * Swelling, redness, discharge or bleeding from your incision or episiotomy site * Your incision begins to separate * Problems urinating (including inability to urinate or burning while urinating). * Visual changes * Severe headache * Flu-like symptoms * Pain or redness in one of both of your breasts * Pain, warmth, tenderness or swelling in your legs, especially the calf area * Frequent nausea and vomiting * Symptoms of depression or anxiety If you experience any of the following, call 911 or go to the nearest Emergency Room. * Chest pain * Problems breathing * Seizure activity * Partial or complete paralysis of a body part, slurred speech, weakness or drooping of the face, or a sudden inability to walk or hold your balance Test Results: Test results from this visit will be discussed in further detail at your follow- up appointment, if applicable.
--- NOTE | 2020-08-02 17:10 | PCM.DCVAG ---
<Stephanie Garcia - Last Filed: 08/02/20 17:10> Discharge Diet: No Restrictions Discharge Activity: Return to Normal Activity, May not drive while taking narcotic pain medications., May Shower May resume sexual activity in: 4-6 weeks Call your doctor if your incision/area has: Continuous Slow Oozing, Sudden Increased Bleeding, Increased Pain/ Swelling, Increased Redness, Foul Smelling Discharge Additional Instructions: If you experience any of the following, contact your healthcare provider. Bleeding that soaks a pad every hour for 2 hours Fever 100.4 or higher Unrelieved incision or abdominal pain Swelling, redness, discharge or bleeding from your incision or episiotomy site Your incision begins to separate Problems urinating (including inability to urinate or burning while urinating). Visual changes Severe headache Flu-like symptoms Pain or redness in one of both of your breasts Pain, warmth, tenderness or swelling in your legs, especially the calf area Frequent nausea and vomiting Symptoms of depression or anxiety If you experience any of the following, call 911 or go to the nearest Emergency Room. Chest pain Problems breathing Seizure activity Partial or complete paralysis of a body part, slurred speech, weakness or drooping of the face, or a sudden inability to walk or hold your balance Allergies/Adverse Reactions: Allergies No Known Allergies Allergy (Verified 08/02/20 11:57) Medications to take at Discharge vitamin#30 30 mg iron-10 mg iron-folic acid 1 mg-omg3 capsule cap PO 01/05/20 Naproxen [Naprosyn] 250 - 500 mg PO Q8H PRN PRN #30 tab 08/02/20 The following prescriptions were given: Naproxen [Naprosyn] 250 - 500 mg PO Q8H PRN PRN #30 tab PRN Reason: MILD PAIN Transmission Status: Received by [facility] Please Follow Up With: Stephanie Garcia MD - [phone] When: Call to make an appointment with your doctor in 6 weeks. If you had elevated Blood pressure or 4th degree laceration you will need to be seen in 2 weeks. Primary Care Physician: Care Physician,No Primary [Primary Care Provider] - Test Results: Test results from this visit will be discussed in further detail at your follow-up appointment, if applicable. <Delmis Kang FUNERAL ARRANGER - Last Filed: 08/03/20 07:43> Additional Instructions: If you experience any of the following, contact your healthcare provider. Bleeding that soaks a pad every hour for 2 hours Fever 100.4 or higher Unrelieved incision or abdominal pain Swelling, redness, discharge or bleeding from your incision or episiotomy site Your incision begins to separate Problems urinating (including inability to urinate or burning while urinating). Visual changes Severe headache Flu-like symptoms Pain or redness in one of both of your breasts Pain, warmth, tenderness or swelling in your legs, especially the calf area Frequent nausea and vomiting Symptoms of depression or anxiety If you experience any of the following, call 911 or go to the nearest Emergency Room. Chest pain Problems breathing Seizure activity Partial or complete paralysis of a body part, slurred speech, weakness or drooping of the face, or a sudden inability to walk or hold your balance Test Results: Test results from this visit will be discussed in further detail at your follow-up appointment, if applicable.
[2020-08-03] VITALS (9 sets, daily range): BP systolic 96–122; BP diastolic 46–71; PULSE 64–79; RESP 14–18; TEMP 36.3–37.1; O2SAT 96
--- NOTE | 2020-08-03 07:41 | PCM.PN.OB ---
Patient Problems: Active and Suspected Problems (Last Reviewed 08/02/20 @ 11:19 by Dalia Irizarry) Active labor at term (Acute) Vaginal after () (Acute) 37 weeks gestation of (Acute) electronic covid test ordered 07/23/20 (scheduled for 08/06/20 at 1340) Other general counseling and advice for contraceptive management (Acute) Wants BS if c section Low-lying placenta (Acute) almost 2 cm posterior away from cervix, will proceed with trial of labor History of delivery (Acute) x 1, plan this . (Acute) NIPT, carrier, and ntd declined. nl anatomy. patient declined GCT, planning home testing. 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 Tolerating PO. Ambulating and voiding without difficulty. Breast feeding well. Denies chest pain, shortness of breath, calf pain/swelling, fevers, chills, lightheadedness. - Physical Exam Vitals/I&O's: Vital Signs Temp Pulse Resp BP Pulse Ox 97.6 F L 69 14 97/54 L 96 08/03/20 07:40 08/03/20 07:40 08/03/20 07:40 08/03/20 07:40 08/03/20 04:30 Oxygen Delivery Method Room Air Weight: 194 lb 3.636 oz Body Mass Index (BMI) 34.4 Intake and Output for Last 24 Hours 08/01/20 08/02/20 08/03/20 23:59 23:59 23:59 Intake Total 1636.66 / 1636.66 Output Total 900 / 900 Balance 736.66 / 736.66 General: Alert, Oriented x3 Abdomen: Soft, Non Tender - FF below U Microbiology Past 72 Hours 08/02/20 12:50 Mucosa - Nose SARS-CoV-2 Antigen (Rapid) - Final Laboratory Results 08/02/20 12:10: WBC 12.9 H, RBC 4.32, Hgb 13.8, Hct 41.9, MCV 97.0, MCH 31.9, MCHC 32.9, RDW Std Deviation 48.0 H, RDW Coeff of Marielle 13.6, Plt Count 177, MPV 11.4, Immature Gran % (Auto) 0.500, Neut % (Auto) 70.8 H, Lymph % (Auto) 20.4, [place] % (Auto) 7.9, Eos % (Auto) 0.2, Baso % (Auto) 0.2, Absolute Neuts (auto) 9.1 H, Absolute Lymphs (auto) 2.63, Nucleated RBC % 0 08/02/20 12:10: Blood Type A POSITIVE, Antibody Screen NEGATIVE Current Medications Acetaminophen (Acetaminophen 500 Mg Tablet) 1,000 mg PO Q8H PRN PRN PRN Reason: Pain Score 1-3 Bisacodyl (Bisacodyl 10 Mg Suppository) 10 mg RC UD PRN PRN Reason: If no BM Dibucaine (Dibucaine 30 Gm Tube) 1 applic TOPICAL TID PRN PRN; Protocol PRN Reason: Discomfort Hydrocortisone (Hydrocortisone 2.5% Crm) 1 applic TOPICAL TID PRN PRN; Protocol PRN Reason: Discomfort Methylergonovine Maleate (Methylergonovine 0.2 Mg/Ml Ampul) 0.2 mg IM X1 PRN PRN Reason: Excess bleeding/uterine atony Naproxen (Naproxen 250 Mg Tablet) 500 mg PO Q8H PRN PRN PRN Reason: Pain Score 1-3 Ondansetron HCl (Ondansetron 4 Mg/2 Ml Vial) 4 mg IV Q4H PRN PRN PRN Reason: Nausea Oxycodone HCl (Oxycodone 5 Mg Tablet) 5 - 10 mg PO Q4H PRN PRN PRN Reason: Pain Score 4-10 Senna/Docusate Sodium (Senna/Docusate Sodium 1 Tablet) 1 - 2 tablet PO DAILY PRN PRN PRN Reason: Constipation Simethicone (Simethicone 80 Mg Tablet) 80 mg PO PCHS PRN PRN Reason: Indigestion/Stomach pain Sodium Chloride (0.9% Saline Lock 10 Ml Syringe) 5 - 15 ml IV UD PRN PRN Reason: SALINE FLUSH Medical Necessity - Tobacco Use Smoking Status: Never smoker Assessment/Plan All Active Problems (Last Reviewed 08/02/20 @ 11:19 by Dalia Irizarry) Active labor at term (Acute) Vaginal after () (Acute) 37 weeks gestation of (Acute) Other general counseling and advice for contraceptive management (Acute) Low-lying placenta (Acute) History of delivery (Acute) (Acute) Supervision of normal (Acute) History of gestational diabetes (Acute) s/p PPD # 1 1. routine post delivery care 2. breast feeding- support given 3. rh positive 4. rubella immune 5. home today
[2020-08-03] MEDS: Naproxen 250 MG Tablet 500 MG PO (07:49)
[2020-08-03] MEDS: Acetaminophen 500 MG Tablet 1000 MG PO (07:50)
== END 2020-08-03 17:30 | disposition home or self-care (01) | DRG 806 ==
PROVIDERS: Admitting Provider Obstetrics & Gynecology; Referring Provider Obstetrics & Gynecology; Visit Provider Obstetrics & Gynecology
DX: O34.219 Maternal care for unspecified type scar from previous cesarean delivery (principal); O44.43 Low lying placenta NOS or without hemorrhage, third trimester; O69.81X0 Labor and delivery complicated by cord around neck, without compression, not applicable or unspecified; Z20.822 Contact with and (suspected) exposure to COVID-19; Z86.32 Personal history of gestational diabetes; Z3A.39 39 weeks gestation of pregnancy; Z37.0 Single live birth
CPT/HCPCS: 59025; 59050; 85025; 86850; 86900; 86901; 87426; 99218; J7120; G0378

== ENCOUNTER → 2020-08-02 | Outpatient (CLI) | payer OTHER, SELFPAY ==
[2020-08-02 11:18] VITALS: BMI 35.2
[2020-08-02 11:46] LABS: ROM Internal Control Test YES-OK TO RESULT pt. (Internal QC)
[2020-08-02 11:47] LABS: ROM Patient Test POSITIVE (Negative)
== END | disposition home or self-care (01) ==
LOC: LABSPEC 11:38
PROVIDERS: Visit Provider Obstetrics & Gynecology
DX: N89.8 Other specified noninflammatory disorders of vagina (principal)
CPT/HCPCS: 84112

== ENCOUNTER 2021-08-05 12:08 | Outpatient (CLI) | payer OTHER, SELFPAY | END 2021-08-05 23:59 | disposition home or self-care (01) | LOC: LABSPEC 12:09 | PROVIDERS: Referring Provider Obstetrics & Gynecology; Visit Provider Obstetrics & Gynecology | DX: N76.0 Acute vaginitis (principal) | CPT/HCPCS: 87070; 87205 ==